=== PATIENT | male | born 1970 | race Caucasian/White ===

== ENCOUNTER 2022-02-12 07:54 | Emergency (ER) | payer SELFPAY ==
[~2022-02-12] VITALS: Ht 172 cm; Wt 108.0 kg
--- NOTE | 2022-02-12 08:56 | ED Cough/URI ---
General Chief Complaint: Cough/Cold/Flu Symptoms Stated Complaint: FLU-LIKE SYMPTOMS Nursing Triage Note: PT AMB TO RM 9 PT CO OF COLD COUGH AND FLU SX, STATES HAS HAD BODY ACHES, INTERMITTENT FEVERS, COUGH AND HOARSNESS FOR APPROX 2 WEEKS Source: patient Exam Limitations: no limitations History of Present Illness Date Seen by Provider: Feb 12, 2022 Time Seen by Provider: 08:26 Initial Comments Here with report of approximately 2 weeks of body aches and cough and congestion but this is now turned into cough, sore throat, mild shortness of breath and hoarse voice. Noted to have elevated blood pressure and admits that he is not on his blood pressure medicine and has not been for some time as he recently moved here. States he has had intermittent fevers. States he was actually getting better but had to work outside in the cold on last Wednesday, 5 days ago and since then his symptoms have worsened. Does admit to smoking. Timing/Duration: getting worse, other (2 weeks) Severity/Quality: moderate, dry cough Prior Episodes/Possible Cause: occasional episodes Modifying Factors: Worse With Activity; Improves With Rest Associated Symptoms: cough, nasal congestion, shortness of breath, sore throat Allergies and Home Medications Allergies Coded Allergies: No Known Drug Allergies (Unverified , 02/12/22) Patient Home Medication List Home Medication List Reviewed: Yes Review of Systems Review of Systems Constitutional: see HPI; No chills; fever (Intermittent but not chronic) EENTM: nose congestion, throat pain Respiratory: cough, short of breath Cardiovascular: No chest pain, No edema Gastrointestinal: No nausea; vomiting Genitourinary: No dysuria, No pain Musculoskeletal: No joint pain, No muscle pain Skin: no symptoms reported All Other Systems Reviewed Negative Unless Noted: Yes Past Lbodgat-Feacmy-Gwmgdm Hx Patient Social History Tobacco Use?: Yes Tobacco type used: Cigarettes Smoking Status: Current Everyday Smoker Substance use?: No Alcohol Use?: Yes Alcohol Frequency: Rarely Pt feels they are or have been: No Immunizations Up To Date First/Initial COVID19 Vaccinat: YES Second COVID19 Vaccination Jake: YES COVID19 Vaccine Electronic Data Processing Auditor: LALI Past Medical History Surgery/Hospitalization HX: HTN Cardiac: Yes Hypertension Psychosocial: Yes Depression Family Medical History No Pertinent Family Hx Physical Exam Vital Signs - First Documented 02/12/22 08:10 Temp 35.8 Pulse 82 Resp 18 B/P (MAP) 177/113 (134) Pulse Ox 97 Capillary Refill : Less Than 3 Seconds Height: '" Weight: lbs. oz. kg; 36.00 BMI Method: General Appearance: WD/WN, no apparent distress HEENT: PERRL/EOMI, pharynx normal Neck: full range of motion, supple Respiratory: lungs clear, other (Coarse cough noted) Cardiovascular: regular rate, rhythm, no murmur Gastrointestinal: non tender, soft Extremities: non-tender, normal inspection, no pedal edema Neurologic/Psychiatric: alert, oriented x 3 Skin: normal color, warm/dry Progress/Results/Core Measures Suspected Sepsis SIRS Temperature: Pulse: 82 Respiratory Rate: 18 Blood Pressure 177 /113 Mean: 134 Results/Orders Lab Results Laboratory Tests Test 02/12/22 08:15 Range/Units Influenza Type A (RT-PCR) Not Detected Not Detecte Influenza Type B (RT-PCR) Not Detected Not Detecte SARS-CoV-2 RNA (RT-PCR) Not Detected Not Detecte My Orders Orders - RASHEEDA CARDONA MD Influenza A And B By Pcr (02/12/22 08:25) Covid 19 Inhouse Test (02/12/22 08:25) Chest 1 View, Ap/Pa Only (02/12/22 08:38) Metoprolol Succinate (Xl) Tab (Toprol Xl (02/12/22 09:00) Vital Signs/I&O 02/12/22 08:10 Temp 35.8 Pulse 82 Resp 18 B/P (MAP) 177/113 (134) Pulse Ox 97 Capillary Refill : Less Than 3 Seconds Blood Pressure Mean: 134 Progress Note : Progress Note Seen and evaluated. COVID and influenza testing initiated. We will get chest x-ray to rule out pneumonia. Patient was noted to be quite hypertensive on arrival. He admits that he is off of his antihypertensive. He does not remember what it was did go to the [facility] in [place]. 0855: We did discuss medication prescription with [facility] in [place] and he was previously on metoprolol 50 mg p.o. daily ER format. He was also previously on fluoxetine. We will go ahead and initiate Toprol-XL 50 mg p.o. now and I will prescribe that to give him time to find a local physician as he is now moved to this area. Monitor patient. 0940: Chest x-ray shows no acute findings. COVID and influenza testing are negative. This is likely bronchitis secondary to recent viral illness and would respond well to steroids. We will send a prescription for that as well as the Toprol-XL. This was discussed with patient who agrees. Discharged home with return precautions. Patient verbalized understanding instructions and agreement with plan. Diagnostic Imaging Diagonstic Imaging: Xray Plain Films/CT/US/NM/MRI: chest Comments [facility] [place], [place] NAME: JESSICA ARZATE [facility] REC#: [id number] PT STATUS: REG ER : 1970 PHYSICIAN: RASHEEDA CARDONA MD ADMIT DATE: 02/12/22/ER Draft Date of Exam:02/12/22 CHEST 1 VIEW, AP/PA ONLY Indication: Cough. FINDINGS: The heart size, mediastinal configuration, and pulmonary vascularity are within normal limits. There is no pleural effusion, pneumothorax, or pneumonia. The osseous structures are unremarkable. IMPRESSION: No acute cardiopulmonary abnormality. Dictated on workstation # [id number] Dict: 02/12/22918 Trans: 02/12/22925 [facility] [id number] Interpreted by: JOO DEUTSCH MD Electronically signed by: Departure Impression Primary Impression: Bronchitis Additional Impression: Uncontrolled hypertension Disposition: 01 HOME, SELF-CARE Condition: Stable Departure-Patient Inst. Referrals: DARIUS LOPEZ MD, DANIEL J MD NO,LOCAL PHYSICIAN (PCP) Primary Care Physician WOODY GONSALVES MD Patient Instructions: Acute Bronchitis, Adult (DC), High Blood Pressure ED Add. Discharge Instructions: All discharge instructions reviewed with patient and/or family. Voiced understanding. Take medications as directed. It is very important that you establish care with a doctor locally to continue to evaluate and monitor your blood pressure and treat as needed. Smoking is not helping with your bronchitis and you should consider quitting smoking. Return for worse pain, fever, vomiting, weakness, breathing problems or other concerns as as needed. Scripts Prednisone (Prednisone) 20 Mg Tab 40 MG PO DAILY, #10 TAB 0 Refills Prov: RASHEEDA CARDONA MD 02/12/22 Metoprolol Succinate (Toprol Xl) 50 Mg Tab.er.24h 50 MG PO DAILY for 30 Days, #3 TAB 2 Refills Prov: RASHEEDA CARDONA MD 02/12/22 RASHEEDA CARDONA MD Feb 12, 2022 08:56
[2022-02-12] MEDS ORDERED: meTOproloL SUCCINATE 50 MG (TOPROL XL) TAB PO SCH (09:00)
--- NOTE | 2022-02-12 09:27 | Diagnostic Imaging Report ---
Indication: Cough. FINDINGS: The heart size, mediastinal configuration, and pulmonary vascularity are within normal limits. There is no pleural effusion, pneumothorax, or pneumonia. The osseous structures are unremarkable. IMPRESSION: No acute cardiopulmonary abnormality. Dictated by: Dictated on workstation # [id number]
[2022-02-12] MEDS ORDERED: METO-352 PO (09:46)
[2022-02-12] MEDS ORDERED: PRD20T PO (09:46)
[2022-02-12 09:53] VITALS: BP 165/99
== END 2022-02-12 09:53 | disposition home or self-care (01) ==
LOC: ER 07:59
DX: J40 Bronchitis, not specified as acute or chronic (principal); I10 Essential (primary) hypertension; T46.5X6A Underdosing of other antihypertensive drugs, initial encounter; F17.210 Nicotine dependence, cigarettes, uncomplicated; Z20.822 Contact with and (suspected) exposure to COVID-19; Z91.138 Patient's unintentional underdosing of medication regimen for other reason
CPT/HCPCS: 71045; 87636

== ENCOUNTER 2022-12-01 08:30 | Emergency (ER) | payer OTHER ==
[~2022-12-01 08:30] MED LIST: METO-352 PO; PRD20T PO
[2022-12-01] MEDS ORDERED: fentaNYL INJECTION 100 MCG/2 ML VIAL IVP ONE (09:15)
--- NOTE | 2022-12-01 09:27 | ED Back Pain ---
General Chief Complaint: Back Problems Stated Complaint: LOWER BACK PAIN, Nursing Triage Note: PT AMB TO RM 6 PT CO OF BACK PAIN, PT STATES INJURED BACK WHEN MOVING ON 11/19/22. PT WAS SEEN ED. PT STATES CONT TO HAVE BACK PAIN AND SPASMS. RATES PAIN10/10. STATES IS IN LOWER BACK AND L SIDE. PT IS VERY FIDGETY. Source of Information: Patient (JOSE RAMON GIRALDO) History of Present Illness Date Seen by Provider: Dec 01, 2022 Time Seen by Provider: 09:10 Initial Comments 51 yo M with PMH of HTN, hep C, and liver disease presents to the ED with c/o new onset lower back pain that started on 11/18/22. Pt states that pain started in lower back randomly a few days after moving refridgerators, denies any trauma to back or pain during that time. Pt states that pain felt like muscle spasms with occassional sharp pains that radiated to left flank. Pt states that pain was worse with sitting/standing up straight and being in the position relieved pain. Pt was seen at [facility] ED on 11/18/22 and was given flexeril. Pt states that pain did not improve with the Flexeril, prompting him to return to the ED the next day. Pt was prescribed limited dose of hydrocodone and prednisone, which pt states minimally improved pain. Pt states that he finished prescribed medications a few days ago and has noticed return of back pain, prompting him to come to the ED for further evaluation. Pt took 4 or 5 tabs of ibuprofen at 530am this morning with no relief. Pt denies any urinary or bowel incontinence but notes "very black tarry" bowel movements (x2) 2 days ago. Pt has not had a BM since, normally has one daily. Pt had colonoscopy a couple years ago that was "normal". Pt denies any dark urine, hematuria, fever, chills, nausea, vomiting, decreased appetite, and h/o kidney stones. Location: Lumbar Spine, Paraspinous Muscles, T-Spine Timing/Duration: Constant Severity: Moderate Pain/Injury Location: Back (Upper L lumbar- paraspinous and CVA ) Modifying Factors: Improves With Movement Associated Symptoms: muscle spasms; No weakness, No numbness in legs/feet, No tingling in legs/feet, No sensory/motor loss, No loss of bladder control, No loss of bowel control (JOSE RAMON GIRALDO) Allergies and Home Medications Allergies Coded Allergies: No Known Drug Allergies (Unverified , 02/12/22) Patient Home Medication List Home Medication List Reviewed: Yes (JOSE RAMON GIRALDO) Metoprolol Succinate (Toprol Xl) 50 Mg Tab.er.24h, 50 MG PO DAILY Prescribed by: RASHEEDA CARDONA on 02/12/22945 Prednisone (Prednisone) 20 Mg Tab, 40 MG PO DAILY Prescribed by: RASHEEDA CARDONA on 02/12/22 0946 Review of Systems Constitutional: no symptoms reported; No fever EENTM: no symptoms reported Respiratory: no symptoms reported Cardiovascular: no symptoms reported Gastrointestinal: melena; No nausea, No vomiting Genitourinary: no symptoms reported; No hematuria, No incontinence Musculoskeletal: back pain, muscle pain Skin: no symptoms reported Psychiatric/Neurological: No Symptoms Reported (JOSE RAMON GIRALDO) All Other Systems Reviewed Negative Unless Noted: Yes (JOSE RAMON GIRALDO) Past Utbylrr-Nrwmis-Hxkild Hx Patient Social History Tobacco Use?: Yes Tobacco type used: Cigarettes Smoking Status: Current Everyday Smoker Substance use?: No Additional substance use comme: HAS HX Alcohol Use?: Yes Alcohol type: Hard Liquor Alcohol Frequency: Once in a while Pt feels they are or have been: No (JOSE RAMON GIRALDO) Immunizations Up To Date First/Initial COVID19 Vaccinat: YES Second COVID19 Vaccination Jake: YES (JOSE RAMON GIRALDO) Past Medical History Surgery/Hospitalization HX: HEP C, HTN, BILAT HAND SURG. Surgeries: Yes Orthopedic (b/l hand surgeries) Respiratory: No Cardiac: Yes Hypertension Neurological: No Genitourinary: No Gastrointestinal: Yes (Hep C +, "liver disease") Musculoskeletal: No Endocrine: No HEENT: No Cancer: No Psychosocial: Yes Depression Integumentary: No (JOSE RAMON GIRALDO) Family Medical History No Pertinent Family Hx (JOSE RAMON GIRALDO) Physical Exam Vital Signs Vital Signs - First Documented 12/01/22 08:40 Temp 36.6 Pulse 70 Resp 18 B/P (MAP) 150/120 (130) Pulse Ox 100 (ADAM BARBOSA MD) Vital Signs Capillary Refill : Less Than 3 Seconds (JOSE RAMON GIRALDO) Height, Weight, BMI Height: '" Weight: lbs. oz. kg; BMI Method: General Appearance: Mild Distress (twitching legs, clammy skin) HEENT: PERRL/EOMI, Moist Mucous Membranes Neck: Normal Inspection, Non Tender Cardiovascular: Regular Rate, Rhythm, No Murmur Respiratory: Lungs Clear, Normal Breath Sounds, No Accessory Muscle Use Gastrointestinal: Soft, Tenderness (LLQ and suprapubic tenderness to palpation) Back: CVA Tenderness (L), Other (tenderness over left upper lumbar paraspinal musculature and point tenderness over upper lumbar and lower thoracic vertebrae ) Extremity: Normal Inspection, Normal Range of Motion (pain to lower back with R passive leg raise initially but no pain on repeat straight leg raise), Non Tender Neurologic/Psychiatric: Alert, Oriented x3, No Motor/Sensory Deficits, Normal Mood/Affect Skin: Normal Color, Damp Lymphatic: No Adenopathy (JOSE RAMON GIRALDO) Progress/Results/Core Measures Results/Orders Lab Results Laboratory Tests Test 12/01/22 09:25 Range/Units White Blood Count 7.5 4.3-11.0 10^3/uL Red Blood Count 4.90 4.30-5.52 10^6/uL Hemoglobin 15.5 13.3-17.7 g/dL Hematocrit 44 40-54 % Mean Corpuscular Volume 91 80-99 fL Mean Corpuscular Hemoglobin 32 25-34 pg Mean Corpuscular Hemoglobin Concent 35 32-36 g/dL Red Cell Distribution Width 12.6 10.0-14.5 % Platelet Count 148 130-400 10^3/uL Mean Platelet Volume 10.9 9.0-12.2 fL Immature Granulocyte % (Auto) 1 % Neutrophils (%) (Auto) 55 42-75 % Lymphocytes (%) (Auto) 33 12-44 % Monocytes (%) (Auto) 8 0-12 % Eosinophils (%) (Auto) 3 0-10 % Basophils (%) (Auto) 1 0-10 % Neutrophils # (Auto) 4.1 1.8-7.8 10^3/uL Lymphocytes # (Auto) 2.5 1.0-4.0 10^3/uL Monocytes # (Auto) 0.6 0.0-1.0 10^3/uL Eosinophils # (Auto) 0.2 0.0-0.3 10^3/uL Basophils # (Auto) 0.1 0.0-0.1 10^3/uL Immature Granulocyte # (Auto) 0.0 0.0-0.1 10^3/uL Urine Color YELLOW Urine Clarity SLIGHTLY CLOUDY Urine pH 7.0 5-9 Urine Specific [place] 1.020 1.016-1.022 Urine Protein NEGATIVE NEGATIVE Urine Glucose (UA) 1+ H NEGATIVE Urine Ketones NEGATIVE NEGATIVE Urine Nitrite NEGATIVE NEGATIVE Urine Bilirubin NEGATIVE NEGATIVE Urine Urobilinogen 0.2 < = 1.0 MG/DL Urine Leukocyte Esterase NEGATIVE NEGATIVE Urine RBC (Auto) NEGATIVE NEGATIVE Urine RBC NONE /HPF Urine WBC RARE /HPF Urine Squamous Epithelial Cells RARE /HPF Urine Crystals PRESENT H /LPF Urine Amorphous Sediment FEW PETTY PHOSPHATE H /LPF Urine Bacteria FEW H /HPF Urine Casts NONE /LPF Urine Mucus SMALL H /LPF Urine Culture Indicated NO Sodium Level 137 135-145 MMOL/L Potassium Level 5.0 3.6-5.0 MMOL/L Chloride Level 104 98-107 MMOL/L Carbon Dioxide Level 22 21-32 MMOL/L Anion Gap 11 5-14 MMOL/L Blood Urea Nitrogen 24 H 7-18 MG/DL Creatinine 0.95 0.60-1.30 MG/DL Estimat Glomerular Filtration Rate 96 BUN/Creatinine Ratio 25 Glucose Level 141 H 70-105 MG/DL Calcium Level 9.1 8.5-10.1 MG/DL Corrected Calcium 9.6 8.5-10.1 MG/DL Total Bilirubin 0.4 0.1-1.0 MG/DL Aspartate Amino Transf (AST/SGOT) 45 H 5-34 U/L Alanine Aminotransferase (ALT/SGPT) 53 0-55 U/L Alkaline Phosphatase 70 40-136 U/L Total Protein 6.7 6.4-8.2 GM/DL Albumin 3.4 3.2-4.5 GM/DL Urine Opiates Screen NEGATIVE NEGATIVE Urine Oxycodone Screen NEGATIVE NEGATIVE Urine Methadone Screen NEGATIVE NEGATIVE Urine Propoxyphene Screen NEGATIVE NEGATIVE Urine Barbiturates Screen NEGATIVE NEGATIVE Ur Tricyclic Antidepressants Screen NEGATIVE NEGATIVE Urine Phencyclidine Screen NEGATIVE NEGATIVE Urine Amphetamines Screen POSITIVE H NEGATIVE Urine Methamphetamines Screen POSITIVE H NEGATIVE Urine Benzodiazepines Screen NEGATIVE NEGATIVE Urine Cocaine Screen NEGATIVE NEGATIVE Urine Cannabinoids Screen NEGATIVE NEGATIVE (ADAM BARBOSA MD) My Orders Orders - ADAM BARBOSA MD Ed Iv/Invasive Line Start (12/01/22 09:13) Cbc With Automated Diff (12/01/22 09:13) Comprehensive Metabolic Panel (12/01/22 09:13) Ua Culture If Indicated (12/01/22 09:13) Drug Screen Stat (Urine) (12/01/22 09:13) Fentanyl Injection (Fentanyl Injection (12/01/22 09:15) Ct Abdomen/Pelvis Wo (12/01/22 10:19) Ketorolac Injection (Ketorolac Injection (12/01/22 10:30) (ADAM BARBOSA MD) Medications Given in ED (ADAM BARBOSA MD) Vital Signs/I&O 12/01/22 12/01/22 08:40 11:12 Temp 36.6 36.6 Pulse 70 70 Resp 18 18 B/P (MAP) 150/120 (130) 150/120 Pulse Ox 100 100 (ADAM BARBOSA MD) Blood Pressure Mean: 130 Progress Progress Note : Time: 11:00 Progress Note Patient seen and evaluated by me. Evaluation today includes physical exam, CBC, Chem-12, urine drug screen, urinalysis and CT abdomen and pelvis with IV contrast. Pertinent physical exam findings well-developed well-nourished obese male in moderate distress due to back, flank pain. He is a little diaphoretic. His vital signs are stable. Heart is regular, lungs are clear. Abdomen is mildly distended. Bowel sounds are present. He is diffusely tender to the bilateral flanks. No rebound tenderness. He has point tenderness to the paraspinous musculature lower thoracic, upper lumbar spine. No overlying rashes/erythema. Patient does not tolerate percussion of the midline spine. He has no lower extremity weakness. Straight leg raise is negative. His pain does not radiate into the legs. No saddle anesthesia or bowel or bladder incontinence. Normal sensation. Patient does seem very agitated, he is jerky and jittery on exam. Concern for intoxication. Differential diagnosis based on history and physical exam renal colic/ureteral stone, colitis, pyelonephritis/UTI, radicular pain, disccitis Plan none Labs independently reviewed and interpreted by me. His CBC is completely normal. His chemistry is unremarkable except for slightly elevated glucose at 141. His urinalysis reveals no evidence of infection or blood. His urine toxicology is positive for methamphetamine. Patient is treated with initially 50 mcg of fentanyl IV and then 15 mg of Toradol IV. He did achieve significant relief of his back and flank pain. No concerning findings for kidney stone on CT as read by the radiologist. In fact he has no acute abnormalities to CT abdomen and pelvis. No concerning findings of significant disc bulge. No intra-abdominal abscess, free fluid or signs of obstruction. Discussed with the patient his methamphetamine use/abuse. He states its been at least a week since he has used methamphetamine. He did appear acutely intoxicated on exam. He has no concerning findings on lab work for urinary tract infection thus ruling out pyelonephritis. He does not have any evidence of lower extremity weakness numbness or loss of function ruling out a radiculopathy. He is afebrile. Low clinical concern for discitis however secondary to his methamphetamine use this would remain a potential etiology. He really denies midline back pain it is more paraspinous. Suspect more musculoskeletal pain in origin amplified by his methamphetamine use. I recomm ended npfo-dvp-dxyxlvo lidocaine patches, muscle rubs, Tylenol and ibuprofen. I gave clear return instructions both verbal and written format. He is improved at discharge. (ADAM BARBOSA MD) Diagnostic Imaging Diagonstic Imaging: CT Plain Films/CT/US/NM/MRI: abdomen, pelvis Comments [facility]. [place], [place] NAME: JESSICA ARZATE [facility] REC#: [id number] PT STATUS: DEP ER : 1970 PHYSICIAN: ADAM BARBOSA MD ADMIT DATE: 12/01/22/ER Signed Date of Exam:12/01/22 CT ABDOMEN/PELVIS WO CLINICAL INDICATION: Patient with back pain. Patient injured back when moving on 11/19/2022. Patient continues to have back pain and spasm after previously visiting the Emergency Department. EXAM: Axial CT scan of the abdomen and pelvis performed without IV or enteric contrast. Sagittal and coronal reformatted images were created. Auto Exposure Controls were utilized during the CT exam to meet ALARA standards for radiation dose reduction. COMPARISON: None. FINDINGS: There is minimal atelectasis or scarring involving the right lung base. The liver, spleen, pancreas, and adrenal glands are unremarkable. The gallbladder is decompressed with no stones seen. There is no inflammation adjacent to the gallbladder. Both kidneys are unremarkable with no mass or stones. The appendix is unremarkable. There is no intestinal obstruction. There is no intra-abdominal free air or free fluid. The bladder is fluid-filled and otherwise unremarkable. There is no lymphadenopathy. There is wall thickening involving the distal esophagus which may be related to contraction versus esophagitis. The extraabdominal and extrapelvic soft tissue structures are unremarkable. There are mildly hypertrophic spurs involving the lumbar spine anteriorly. There is lower lumbar spine facet arthropathy. L1-L2: There is no significant central canal or neuroforaminal narrowing. L2-L3: There is mild diffuse disk bulge with mild bilateral neuroforaminal narrowing. There is no significant central canal stenosis. L3-L4: There is diffuse disk bulge with mild bilateral neuroforaminal narrowing and at least mild central canal narrowing. L4-L5: There is mild diffuse disk bulge. There is at least moderate bilateral neuroforaminal narrowing. L5-S1: There is diffuse disk bulge but no significant central canal narrowing. There is moderate right neuroforaminal narrowing and no significant left neuroforaminal narrowing. 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 2: There is wall thickening involving the distal esophagus which may be related to contraction or esophagitis. 3: The remainder of the CT scan of the abdomen and pelvis shows no acute abnormality. There are no urinary tract stones. Dictated by: Dictated on workstation # [id number] Dict: 12/01/22 1037 Trans: 12/01/22 180 [id number] Interpreted by: LORRIE COWART MD Electronically signed by: LORRIE COWART MD 12/01/22 180 (ADAM BARBOSA MD) Departure Impression Primary Impression: Back pain Qualified Codes: M54.6 - Pain in thoracic spine Disposition: 01 HOME, SELF-CARE Condition: Improved Departure-Patient Inst. Decision time for Depature: 11:06 (ADAM BARBOSA MD) Referrals: [facility] [place]IC[place] (PCP) Primary Care Physician Patient Instructions: Upper Back Pain ED Add. Discharge Instructions: Drink plenty of fluids to stay well-hydrated. Do not take any more than 4 tablets of ibuprofen every 8 hours. Always take ibuprofen with food. OR you can take luhn-hqj-joucxgh generic Aleve 2 tablets in the morning and 2 tablets in the evening as needed for pain. Always take this medication with food as well. Alternate heat and ice as needed for discomfort. Continue the muscle relaxers as needed. You can also use ohbj-tsc-uqtmzfd lidocaine patches, Biofreeze/IcyHot or diclofenac gel. Please follow packaging instructions. Please follow-up with a primary care physician. Return to the emergency department for any new, concerning or emergent complaints. Verification and Attestation of Medical Student E/M Service A medical student performed and documented this service in my presence. I reviewed and verified all information documented by the medical student and made modifications to such information, when appropriate. I personally performed the physical exam and medical decision making. Adam Barbosa, Dec 01, 2022,11:08 (ADAM BARBOSA MD) Copy Copies To 1: DONNA JOHNSTON TAYLOR Dec 01, 2022 09:27 ADAM BARBOSA MD Dec 01, 2022 11:08
[2022-12-01 09:36] LABS: BASOPHILS # (AUTO) 0.1 10^3/uL (0.0-0.1); BASOPHILS % (AUTO) 1 % (0-10); EOSINOPHILS # (AUTO) 0.2 10^3/uL (0.0-0.3); EOSINOPHILS % (AUTO) 3 % (0-10); HEMATOCRIT 44 % (40-54); HEMOGLOBIN 15.5 g/dL (13.3-17.7); LYMPHOCYTES # (AUTO) 2.5 10^3/uL (1.0-4.0); LYMPHOCYTES % (AUTO) 33 % (12-44); MEAN CORPUSCULAR HEMOGLOBIN 32 pg (25-34); MEAN CORPUSCULAR HGB CONC 35 g/dL (32-36); MEAN CORPUSCULAR VOLUME 91 fL (80-99); MEAN PLATELET VOLUME 10.9 fL (9.0-12.2); MONOCYTES # (AUTO) 0.6 10^3/uL (0.0-1.0); MONOCYTES % (AUTO) 8 % (0-12); NEUTROPHILS # (AUTO) 4.1 10^3/uL (1.8-7.8); NEUTROPHILS % (AUTO) 55 % (42-75); PLATELET COUNT 148 10^3/uL (130-400); WHITE BLOOD COUNT 7.5 10^3/uL (4.3-11.0)
[2022-12-01 09:57] LABS: ALBUMIN 3.4 GM/DL (3.2-4.5); BILIRUBIN,TOTAL 0.4 MG/DL (0.1-1.0); CALCIUM 9.1 MG/DL (8.5-10.1); CREATININE SERUM 0.95 MG/DL (0.60-1.30); TOTAL PROTEIN 6.7 GM/DL (6.4-8.2)
[2022-12-01 10:01] LABS: AMPHETAMINE SCREEN, URINE POSITIVE (NEGATIVE); BARBITURATE SCREEN URINE NEGATIVE (NEGATIVE); BENZODIAZEPINES SCREEN URINE NEGATIVE (NEGATIVE); CANNABINOID SCREEN, URINE NEGATIVE (NEGATIVE); COCAINE SCREEN URINE NEGATIVE (NEGATIVE); METHADONE STAT NEGATIVE (NEGATIVE); OPIATE SCREEN URINE NEGATIVE (NEGATIVE); OXYCODONE STAT NEGATIVE (NEGATIVE); PROPOXYPHENE STAT NEGATIVE (NEGATIVE); TRICYCLIC ANTIDEPRESSANTS SCRE NEGATIVE (NEGATIVE)
[2022-12-01 10:04] LABS: BILIRUBIN,URINE NEGATIVE (NEGATIVE); CLARITY,URINE SLIGHTLY CLOUDY; COLOR,URINE YELLOW; GLUCOSE, URINE (UA) 1+ (NEGATIVE); KETONES,URINE NEGATIVE (NEGATIVE); LEUKOCYTE ESTERASE ,URINE NEGATIVE (NEGATIVE); NITRITE,URINE NEGATIVE (NEGATIVE); PROTEIN,URINE NEGATIVE (NEGATIVE)
[2022-12-01 10:05] LABS: AMORPHOUS SEDIMENT,UR FEW AMOR PHOSPHATE /LPF; BACTERIA,URINE FEW /HPF; SQUAMOUS EPITHELIAL CELL,UR RARE /HPF; WBC,URINE RARE /HPF
[2022-12-01] MEDS ORDERED: KETOROLAC INJ 15 MG/ML VIAL IVP ONE (10:30)
--- NOTE | 2022-12-01 10:58 | Diagnostic Imaging Report ---
CLINICAL INDICATION: Patient with back pain. Patient injured back when moving on 11/19/2022. Patient continues to have back pain and spasm after previously visiting the Emergency Department. EXAM: Axial CT scan of the abdomen and pelvis performed without IV or enteric contrast. Sagittal and coronal reformatted images were created. Auto Exposure Controls were utilized during the CT exam to meet ALARA standards for radiation dose reduction. COMPARISON: None. FINDINGS: There is minimal atelectasis or scarring involving the right lung base. The liver, spleen, pancreas, and adrenal glands are unremarkable. The gallbladder is decompressed with no stones seen. There is no inflammation adjacent to the gallbladder. Both kidneys are unremarkable with no mass or stones. The appendix is unremarkable. There is no intestinal obstruction. There is no intra-abdominal free air or free fluid. The bladder is fluid-filled and otherwise unremarkable. There is no lymphadenopathy. There is wall thickening involving the distal esophagus which may be related to contraction versus esophagitis. The extraabdominal and extrapelvic soft tissue structures are unremarkable. There are mildly hypertrophic spurs involving the lumbar spine anteriorly. There is lower lumbar spine facet arthropathy. L1-L2: There is no significant central canal or neuroforaminal narrowing. L2-L3: There is mild diffuse disk bulge with mild bilateral neuroforaminal narrowing. There is no significant central canal stenosis. L3-L4: There is diffuse disk bulge with mild bilateral neuroforaminal narrowing and at least mild central canal narrowing. L4-L5: There is mild diffuse disk bulge. There is at least moderate bilateral neuroforaminal narrowing. L5-S1: There is diffuse disk bulge but no significant central canal narrowing. There is moderate right neuroforaminal narrowing and no significant left neuroforaminal narrowing. 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 2: There is wall thickening involving the distal esophagus which may be related to contraction or esophagitis. 3: The remainder of the CT scan of the abdomen and pelvis shows no acute abnormality. There are no urinary tract stones. Dictated by: Dictated on workstation # [id number]
[2022-12-01 11:12] VITALS: BP 150/120
== END 2022-12-01 11:12 | disposition home or self-care (01) ==
LOC: EDUNIT# 08:30 → ER 08:34
DX: M54.50 Low back pain, unspecified (principal); M54.6 Pain in thoracic spine; F17.210 Nicotine dependence, cigarettes, uncomplicated
CPT/HCPCS: 36415; 74176; 80053; 80306; 81000; 85025